=== PATIENT | female | born 1980 | race Caucasian/White ===

== ENCOUNTER 2020-02-04 19:07 | Inpatient (IN) ==
[2020-02-04] MEDS ORDERED: ONDANSETRON 4 MG/2 ML VIAL IV PRN (19:17)
[2020-02-04] MEDS ORDERED: BUTORPHANOL 2 MG/ML VIAL IV PRN (19:17)
[2020-02-04] MEDS ORDERED: MEPERIDINE 50 MG/1 ML VIAL IV PRN (19:17)
[2020-02-04] MEDS ORDERED: ePHEDrine 50 MG/ML VIAL IV PRN (19:19)
[2020-02-04] MEDS ORDERED: NALOXONE 0.4 MG/ML VIAL IV PRN (19:19)
[2020-02-04] MEDS ORDERED: FAMOTIDINE 20 MG/2 ML VIAL IV ONE (19:19)
[2020-02-04] MEDS ORDERED: CITRIC ACID/SODIUM CITRATE 30 ML UDCUP PO ONE (19:19)
[2020-02-04] MEDS ORDERED: fentaNYL 2 MCG/ROPIV 0.2% EPID 100 ML EPIDURAL SCH (19:30)
[2020-02-04] MEDS ORDERED: OXYTOCIN/LR 20 UNIT/1,000 ML BAG IV SCH (19:30)
[2020-02-04] MEDS: LACTATED RINGERS 1,000 ML IV PRN (19:35)
[2020-02-04] MEDS: CLINDAMYCIN INJ 900 MG in PREMIX 1 EACH IV SCH (19:44)
[2020-02-04 19:50] LABS: Basophils # 0.1 10*3/uL (0.0-0.2); Basophils % 0.4 % (0.0-0.8); Eosinophils % 0.2 % (0.00-10.9); Hemoglobin 11.7 GM/DL (12.0-16.0); Immature Granulocytes Absolute 0.14 #; Lymphocytes # 1.8 10*3/uL (1.4-4.0); Lymphocytes % 13.2 % (21.3-54.2); Mean Corpuscular HGB Conc 33.4 GM/DL (32-36); Mean Corpuscular Volume 94.3 FL (87-102); Mean Platelet Volume 10.8 FL (9.6-12.0); Monocytes % 5.9 % (1.7-12.7); Neutrophils % 79.3 % (38.7-73.9); Platelet Count 315 T/CUMM (130-400); Red Blood Count 3.71 MC/CUMM (3.8-5.5); Red Cell Distribution Width 13.7 % (9.3-17.3); White Blood Count 13.8 T/CUMM (4-12)
[2020-02-04 20:04] LABS: PT Patient Result 10.3 SECS (9.8-11.9); Partial Thromboplastin Time 25.6 SECS (23.9-33.8)
[2020-02-04 20:09] LABS: Bilirubin,Direct 0.14 MG/DL (0.0-0.20); Uric Acid 5.9 MG/DL (2.6-6.0)
[2020-02-04 20:12] LABS: Albumin 3.1 G/DL (3.4-5.0); Bilirubin,Total 0.5 MG/DL (0.2-1.0); Calcium 9.5 MG/DL (8.5-10.1); Total Protein 6.8 G/DL (6.4-8.3)
[2020-02-05] MEDS: LACTATED RINGERS 1,000 ML IV PRN (01:13)
[2020-02-05] MEDS ORDERED: ACETAMINOPHEN 325 MG/10.15 ML UDCUP PO ONE (03:35)
[2020-02-05] MEDS: CLINDAMYCIN INJ 900 MG in PREMIX 1 EACH IV SCH (03:35)
[2020-02-05] MEDS ORDERED: ACETAMINOPHEN 325 MG TABLET PO ONE (03:38)
[2020-02-05] MEDS ORDERED: CITRIC ACID/SODIUM CITRATE 30 ML UDCUP ONE (04:44)
[2020-02-05] MEDS ORDERED: FAMOTIDINE 20 MG/2 ML VIAL IV ONE (04:45)
[2020-02-05] MEDS ORDERED: miSOPROStoL 200 MCG TABLET ONE (05:33)
[2020-02-05] MEDS ORDERED: TRANEXAMIC ACID 1,000 MG/10 ML VIAL ONE (05:33)
[2020-02-05] MEDS ORDERED: METHYLERGONOVINE 0.2 MG/1 ML AMP ONE (05:34)
[2020-02-05] MEDS ORDERED: CARBOPROST TROMETHAMINE 250 MCG/ML AMP IM ONE (05:34)
[2020-02-05 06:41] LABS: Apearance,Urine CLEAR (Clear); Bilirubin,Urine Negative (Negative); Blood, Urine Small mg/dL (Negative); Glucose,Urine (UA) Negative (Negative); Ketones,Urine Negative (Negative); Mucus,Urine Occasional /LPF (Occasional); Nitrite,Urine Negative (Negative); Protein,Urine Negative; RBC,Urine 9 /HPF (0-4); Squamous Epithelial Cell,Urine Occasional /HPF (0-10); Urine Color Yellow (Yellow); Urine Specific Gravity 1.017 (1.001-1.035); Urine Urobilinogen < 2.0 EU/DL (0.2-1.0); WBC,Urine <1 /HPF (0-6)
[2020-02-05 07:02] LABS: Cord Arterial Blood HCO3 26.4 MMOL/L
[2020-02-05 07:03] LABS: Cord Venous Blood HCO3 21.7 MMOL/L; Cord Venous Blood PCO2 41.5 MMHG; Cord Venous Blood PO2 23.6
[2020-02-05] MEDS ORDERED: LANOLIN 50% CREAM 0.3 OZ TUBE TOP PRN (07:09)
[2020-02-05] MEDS ORDERED: OXYTOCIN/LR 20 UNIT/1,000 ML BAG IV ONE (07:09)
[2020-02-05] MEDS ORDERED: ACETAMINOPHEN 325 MG TABLET PO PRN (07:09)
[2020-02-05] MEDS ORDERED: oxyCODONE/ACETAMINOPHEN 5-325 MG TABLET PO PRN ×2 (07:09)
[2020-02-05] MEDS ORDERED: MEASLES/MUMPS/RUBELLA VACCINE 0.5 ML VIAL SUBCUT ONE (07:09)
[2020-02-05] MEDS ORDERED: WITCH HAZEL PADS 100/JAR TOP PRN (07:09)
[2020-02-05] MEDS ORDERED: DIPH/TET/ACEL PERT BOOSTER VACCINE 0.5 ML VIAL IM ONE (07:09)
[2020-02-05] MEDS ORDERED: BISACODYL 10 MG SUPP RECTAL PRN (07:09)
[2020-02-05] MEDS ORDERED: HYDROCORTISONE 2.5% RECTAL CREAM 30 GM TUBE TOP PRN (07:09)
[2020-02-05] MEDS ORDERED: BENZOCAINE 20%/MENTHOL 0.5% SPRAY 56 GM CAN TOP PRN (07:09)
[2020-02-05] MEDS ORDERED: ONDANSETRON 4 MG/2 ML VIAL IV PRN (07:09)
[2020-02-05] MEDS ORDERED: RHO(D) IMMUNE GLOBULIN 300 MCG SYRINGE IM ONE (07:09)
[2020-02-05] MEDS: IBUPROFEN 800 MG TABLET PO PRN ×2 (14:03→21:59)
[2020-02-05] MEDS: DOCUSATE SODIUM 100 MG CAPSULE PO SCH (21:08)
[2020-02-06 04:41] LABS: Basophils % 0.4 % (0.0-0.8); Lymphocytes % 21.8 % (21.3-54.2)
[2020-02-06 04:47] LABS: Eosinophils # 0.2 10*3/uL (0.0-0.87); Eosinophils % 1.9 % (0.00-10.9); Hematocrit 28.3 VOL% (35.7-47.0); Lymphocytes # 2.1 10*3/uL (1.4-4.0); Mean Corpuscular HGB Conc 33.6 GM/DL (32-36); Mean Platelet Volume 10.7 FL (9.6-12.0); Monocytes % 9.1 % (1.7-12.7); Neutrophils % 65.8 % (38.7-73.9); Red Blood Count 2.98 MC/CUMM (3.8-5.5); White Blood Count 9.8 T/CUMM (4-12)
[2020-02-06 04:53] LABS: Hemoglobin 9.5 GM/DL (12.0-16.0); Platelet Count 214 T/CUMM (130-400)
[2020-02-06 08:12] LABS: Band Neutrophils 2 % (0-10); Eosinophils 1 % (0-10); Lymphocytes 17 % (20-55); Segmented Neutrophils 70 % (50-85); Total Cells Counted 100
[2020-02-06 08:13] LABS: Microcytosis 1+
[2020-02-06 08:14] LABS: Platelet Estimate Normal
[2020-02-06] MEDS: DOCUSATE SODIUM 100 MG CAPSULE PO SCH ×2 (09:04→21:11)
[2020-02-06] MEDS: IBUPROFEN 800 MG TABLET PO PRN (15:05)
[2020-02-07] MEDS: IBUPROFEN 800 MG TABLET PO PRN (03:34)
[2020-02-07 07:52] VITALS: BP 125/93
[2020-02-07] MEDS: DOCUSATE SODIUM 100 MG CAPSULE PO SCH (08:59)
== END 2020-02-07 11:55 | disposition home or self-care (01) | DRG 807 ==
LOC: N.LDOUT 19:07 → N.LD 19:11 → N.OB 02-05 10:00
PROVIDERS: ADMIT Obstetrics & Gynecology; ATTEND Obstetrics & Gynecology